=== PATIENT | female | born 1970 | race Caucasian/White ===

== ENCOUNTER 2022-02-18 17:23 | Outpatient (CLI) | payer MEDICARE, MEDICAID, SELFPAY ==
--- NOTE | 2022-02-18 17:37 | XR_ITS ---
WS: [id number] Exam: XR cervical spine 3V* [id number] Date/Time of Exam: 02/18/2022 5:37 PM Reason For Exam: M54.2 - Cervicalgia Comparison 05/20/2008. No fracture or dislocation. Disc spaces are preserved. Minimal facet DJD. Paraspinal soft tissues alli ear normal. The odontoid is intact. XR/XR cervical spine 3V* [id number] IMPRESSION: 1. No fracture or malalignment. Minimal facet DJD.
[2022-02-18 17:56] LABS: Basophils # 0.1 10^3/uL (0.0-0.1); Basophils % 0.9 %; Eosinophils # 0.3 10^3/uL (0.0-0.8); Eosinophils % 2.4 %; Hematocrit 38.8 % (37.0-47.0); Lymphocytes # 4.5 10^3/uL (0.8-4.8); Lymphocytes % 41.2 %; Mean Corpuscular HGB Conc 33.5 g/dL (30.0-36.0); Mean Corpuscular Hemoglobin 31.6 pg (28.0-34.0); Mean Corpuscular Volume 94.4 fl (81-99); Mean Platelet Volume 9.4 fL (7.4-10.4); Monocytes # 0.7 10^3/uL (0.2-0.9); Neutrophils # 5.34 10^3/uL (1.8-7.7); Neutrophils % 49.1 %; Nucleated Red Blood Cells % 0 %; Platelet Count 331 10^3/cmm (130-400); Red Blood Count 4.11 10^6/uL (4.1-5.3); Red Cell Distribution Width 12.3 % (12.1-15.1); White Blood Count 10.9 10^3/uL (4.0-10.0)
[2022-02-18 18:03] LABS: Erythrocyte Sedimentation Rate 21 mm/hr (0-15)
[2022-02-18 18:34] LABS: 25 Hydroxy Vitamin D 17 ng/mL (30-100); Alanine Aminotransferase 21 U/L (0-33); Albumin Level 4.1 g/dL (3.5-5.2); Alkaline Phosphatase 77 IU/L (35-105); Aspartate Amino Transferase 17 U/L (0-32); Blood Urea Nitrogen 10 mg/dL (6-20); C Reactive Protein 3.1 mg/L (0.0-4.9); Calcium 9.2 mg/dL (8.5-10.5); Carbon Dioxide 23 mmol/L (22-29); Chloride 104 mmol/L (98-107); Chol HDL Ratio 6.38 mg/dL (0.0-4.40); Cholesterol 236 mg/dL (0-200); Glomerular Filtration Rate 88.2 mL/min (90-130); Glucose 106 mg/dL (65-115); HDL Cholesterol 37 mg/dL (60-100); LDL Cholesterol Calculated 126 mg/dL (50-129); Osmolality Calculated 285 mOsm/kg (285-295); Sodium 138 mmol/L (136-145); Thyroid Stimulating Hormone 1.88 uIU/mL (0.27-4.20); Total Bilirubin 0.2 mg/dL (0.15-1.2); Total Protein 7.1 g/dL (6.6-8.7); Triglycerides 364 mg/dL (0-150); VLDL Cholestrol Calculation 73 mg/dL (0-30)
[2022-02-18 18:38] LABS: Vitamin B12 > 2000 pg/mL (232-1245)
== END 2022-02-18 17:24 | disposition home or self-care (01) ==
LOC: RAD 17:35
PROVIDERS: PCP Nurse Practitioner; Visit Provider Nurse Practitioner
DX: M54.2 Cervicalgia (principal); E55.9 Vitamin D deficiency, unspecified; M25.50 Pain in unspecified joint; Z13.6 Encounter for screening for cardiovascular disorders; R53.83 Other fatigue
CPT/HCPCS: 72040; 80053; 80061; 82306; 82607; 84443; 85025; 85651; 86140

== ENCOUNTER 2022-03-26 15:08 | Emergency (ER) | payer MEDICARE, MEDICAID, SELFPAY ==
[2022-03-26 15:35] VITALS: BP 112/94; PULSE 100; RESP 18; TEMP 37.6; O2SAT 100
--- NOTE | 2022-03-26 16:45 | CTR_ITS ---
PROCEDURE INFORMATION: Exam: CT Abdomen And Pelvis Without Contrast Exam date and time: 03/26/2022 5:13 PM Age: 52 years old Clinical indication: Abdominal pain; Localized; Right; Prior surgery; Surgery date: 6+ months; Surgery type: Hyst; Patient HX: C/O R sided abd pain; Additional info: Rlq pain TECHNIQUE: Imaging protocol: Computed tomography of the abdomen and pelvis without contrast. Radiation optimization: All CT scans at this facility use at least one of these dose optimization techniques: automated exposure control; mA and/or kV adjustment per patient size (includes targeted exams where dose is matched to clinical indication); or iterative reconstruction. COMPARISON: [facility] Abdomen Limited 12/02/2015 8:22 AM RADIATION DOSE METRICS: Total DLP (mGy-cm): 1673.57 FINDINGS: Tubes, catheters and devices: Pelvic clips. Liver: Normal. No mass. Gallbladder and bile ducts: Normal. No calcified stones. No ductal dilation. Pancreas: Normal. No ductal dilation. Spleen: Normal. No splenomegaly. Adrenal glands: Normal. No mass. Kidneys and ureters: Normal. No hydronephrosis. Stomach and bowel: Diverticulosis of the distal colon. No diverticulitis. 4.3 cm region of fatty inflammation and stranding with a thin capsule along the anteromedial proximal colon, at the level of the ileocecal valve. This fat inflammation appears to surround a possible diverticulum containing gas bubbles. The stomach and small bowel are unremarkable. No obstruction. Appendix: The appendix is not visualized. No secondary signs of appendicitis. Intraperitoneal space: Unremarkable. No free air. No significant fluid collection. Retroperitoneal space: Small right retroperitoneal calcifications are consistent with phleboliths. Vasculature: See Retroperitoneal space finding. Lymph nodes: Unremarkable. No enlarged lymph nodes. Urinary bladder: The urinary bladder is decompressed. Reproductive: The uterus and ovaries are absent. Bones/joints: Unremarkable. No acute fracture. Soft tissues: Unremarkable. CT/CT abdomen pelvis wo con [id number] IMPRESSION: 1. Fatty inflammation along the anteromedial proximal colon is most likely epiploic appendagitis. There is a possible diverticulum centrally which raises the possibility of acute diverticulitis.
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
[2022-03-26 16:48] LABS: Basophils # 0.1 10^3/uL (0.0-0.1); Basophils % 0.6 %; Eosinophils # 0.1 10^3/uL (0.0-0.8); Eosinophils % 0.8 %; Hematocrit 40.6 % (37.0-47.0); Hemoglobin 13.3 g/dL (11.5-15.3); Lymphocytes # 3.6 10^3/uL (0.8-4.8); Lymphocytes % 32.3 %; Mean Corpuscular HGB Conc 32.8 g/dL (30.0-36.0); Mean Corpuscular Hemoglobin 30.9 pg (28.0-34.0); Mean Corpuscular Volume 94.4 fl (81-99); Mean Platelet Volume 9.7 fL (7.4-10.4); Monocytes # 0.7 10^3/uL (0.2-0.9); Monocytes % 6.6 %; Neutrophils # 6.62 10^3/uL (1.8-7.7); Neutrophils % 59.3 %; Nucleated Red Blood Cells % 0 %; Platelet Count 330 10^3/cmm (130-400); Red Cell Distribution Width 11.9 % (12.1-15.1); White Blood Count 11.2 10^3/uL (4.0-10.0)
[2022-03-26 17:33] LABS: Alanine Aminotransferase 17 U/L (0-33); Albumin Level 4.8 g/dL (3.5-5.2); Alkaline Phosphatase 88 IU/L (35-105); Anion Gap 16.6 (5-19); Aspartate Amino Transferase 12 U/L (0-32); Blood Urea Nitrogen 6 mg/dL (6-20); Calcium 9.6 mg/dL (8.5-10.5); Carbon Dioxide 20 mmol/L (22-29); Chloride 106 mmol/L (98-107); Globulin 2.9 g/dL (1.3-4.6); Glomerular Filtration Rate 88.2 mL/min (90-130); Glucose 99 mg/dL (65-115); Osmolality Calculated 286 mOsm/kg (285-295); Potassium 3.6 mmol/L (3.5-5.1); Sodium 139 mmol/L (136-145); Total Bilirubin 0.4 mg/dL (0.15-1.2); Total Protein 7.7 g/dL (6.6-8.7)
[2022-03-26 18:28] LABS: Add Urine Microscopic? NO; Bilirubin Urine Neg (Negative); Blood Urine Neg (Negative); Glucose Urine UA Norm (Normal); Ketones Urine Negative (Negative); Leukocyte Esterase Urine Negative (Negative); Nitrate Urine Negative (Negative); Protein Urine Neg (Negative); Sulfosalicylic Acid Urine Negative (Negative); Urine Appearance Clear (CLEAR); Urine Color Yellow (Yellow); Urobilinogen Urine Norm (Negative); pH Urine 8 (5-7)
[2022-03-26 18:30] LABS: Charge for UA Resulting for Rev
[2022-03-26 18:42] VITALS: BP 106/65; PULSE 74; RESP 16; O2SAT 98
[2022-03-26] MEDS: ketorolac 30 mg/mL INJ 15 MG IVP (18:53)
== END 2022-03-26 19:00 | disposition home or self-care (01) ==
PROVIDERS: Emergency Provider Emergency Medicine; PCP Nurse Practitioner
DX: K63.89 Other specified diseases of intestine (principal); K21.9 Gastro-esophageal reflux disease without esophagitis; F17.200 Nicotine dependence, unspecified, uncomplicated
CPT/HCPCS: 74176; 80053; 81003; 85025; 96374; 99283; J1885

== ENCOUNTER 2022-08-23 09:32 | Outpatient (CLI) | payer MEDICARE, MEDICAID, SELFPAY ==
--- NOTE | 2022-08-23 09:45 | XR_ITS ---
WS: [id number] [place] [id number] REASON FOR EXAM: M25.511 - Pain in left shoulder FINDINGS: The left humerus is intact with no fracture or focal bone lesion. No periosteal reaction. No soft tissue abnormality. XR/[place] [id number] IMPRESSION: No significant abnormality of the left humerus.
--- NOTE | 2022-08-23 09:45 | XR_ITS ---
WS: [id number] [place] [id number] REASON FOR EXAM: M25.511 - Pain in right shoulder FINDINGS: No fracture or focal bone lesion of the humerus. No periosteal reaction. No soft tissue abnormality. XR/[place] [id number] IMPRESSION: No significant abnormality of the right humerus.
--- NOTE | 2022-08-23 10:20 | ECG_ITS ---
[facility] Test Date: 2022-08-23 Pat Name: Gisella Rodriguez Department: Room: Gender: Female Codifier: : 1970 Requested By: Talha Wood Order Number: [id number] Henrietta MD: Jean-Claude Del Rio M.D. Measurements Intervals [place] Rate: 78 P: 66 WV: 153 QRS: 70 QRSD: 102 T: 48 QT: 362 QTc: 415 Interpretive Statements SINUS RHYTHM Compared to ECG 03/12/2015 17:22:33 Sinus arrhythmia no longer present Electronically Signed On 08-23-2022 17:43:19 CDT by Jean-Claude Del Rio M.D. [id number] f
== END 2022-08-23 09:33 | disposition home or self-care (01) ==
LOC: RAD 09:36
PROVIDERS: PCP Nurse Practitioner; Visit Provider Nurse Practitioner
DX: M25.512 Pain in left shoulder (principal); M25.511 Pain in right shoulder; F41.1 Generalized anxiety disorder
CPT/HCPCS: 73060; 93005

== ENCOUNTER → 2022-09-13 08:37 | Outpatient (BNVA) | payer MEDICARE, MEDICAID, SELFPAY | PROVIDERS: PCP Nurse Practitioner; Visit Provider Specialist | DX: M25.512 Pain in left shoulder (principal); M25.511 Pain in right shoulder | CPT/HCPCS: 73030; 99204 ==

== ENCOUNTER → 2022-10-01 11:26 | Outpatient (BNVA) | payer MEDICARE, MEDICAID, SELFPAY | PROVIDERS: PCP Nurse Practitioner; Visit Provider Nurse Practitioner | DX: M54.2 Cervicalgia (principal); I10 Essential (primary) hypertension; M79.18 Myalgia, other site; M51.16 Intervertebral disc disorders with radiculopathy, lumbar region | CPT/HCPCS: 81000 ==

== ENCOUNTER 2022-10-02 10:54 | Emergency (ER) | payer MEDICARE, MEDICAID, SELFPAY ==
[2022-10-02 11:00] VITALS: BP 140/77; PULSE 62; RESP 11; TEMP 36.4; O2SAT 98; BMI 23.8
--- NOTE | 2022-10-02 11:14 | PC.NURSE ---
Pt reports frontal headache beginning today and rated a 8/10 and described as aching. Pt denies changes to vision.
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
[2022-10-02] MEDS: ketorolac 30 mg/mL INJ 15 MG IVP (12:37)
[2022-10-02 12:52] LABS: Anion Gap 13.9 (5-19); Blood Urea Nitrogen 8 mg/dL (6-20); Calcium 9.3 mg/dL (8.5-10.5); Carbon Dioxide 22 mmol/L (22-29); Chloride 104 mmol/L (98-107); Glomerular Filtration Rate 105.4 mL/min (90-130); Glucose 110 mg/dL (65-115); Osmolality Calculated 281 mOsm/kg (285-295); Potassium 3.9 mmol/L (3.5-5.1); Sodium 136 mmol/L (136-145)
[2022-10-02] MEDS: metoclopramide 5 mg/mL SDV 2 mL IVP (13:03)
[2022-10-02] MEDS: diphenhydrAMINE 50 mg/mL SDV 1mL 25 MG IVP (13:05)
[2022-10-02 13:10] VITALS: BP 133/86; PULSE 55; RESP 16; O2SAT 96
[2022-10-02 13:45] VITALS: BP 131/65; PULSE 58; RESP 16; O2SAT 98
== END 2022-10-02 13:57 | disposition home or self-care (01) ==
PROVIDERS: Emergency Provider Emergency Medicine; PCP Nurse Practitioner
DX: R51.9 Headache, unspecified (principal); R03.0 Elevated blood-pressure reading, without diagnosis of hypertension; F41.9 Anxiety disorder, unspecified; F17.210 Nicotine dependence, cigarettes, uncomplicated
CPT/HCPCS: 36415; 80048; 96374; 96375; 99284; J1200; J1885; J2765

== ENCOUNTER 2022-11-05 10:55 | Outpatient (CLI) | payer MEDICARE, MEDICAID, SELFPAY ==
--- NOTE | 2022-11-05 11:00 | IR_ITS ---
WS: [id number] Left shoulder arthrogram, 11/05/2022 Clinical Data: shoulder pain Comparison: Left shoulder, 09/13/2022 Fluoroscopy time: 0min [id number] # of spot films: 3 Findings: With the usual technique, a 22-gauge small spinal needle was inserted into the left shoulder joint. A fter localizing the needle tip with 1 mL of Omnipaque at a concentration of 240 mg/mL, an injection o f 12 mL of the Omnipaque was done. The shoulder joint shows a normal outline. No evidence of a rotator cuff tear could be seen. IR/IR arthrogram shoulderLT [id number] Impression: Satisfactory injection of Omnipaque into the left shoulder joint for preparatio n for post arthrogram CT.
[2022-11-05] MEDS: iohexol 240 mg/mL 50 mL Btl INTRA-ARTI (11:51)
--- NOTE | 2022-11-05 12:30 | CT_ITS ---
WS: [id number] CT LEFT SHOULDER ARTHROGRAM TECHNIQUE: CT LEFT shoulder arthrogram with coronal and sagittal reformatted images. CLINICAL INFORMATION: shoulder pain COMPARISON: None. DLP: [address] scans at [facility] use at least one of these dose optimization techniques: automated e xposure control; mA and/or kV adjustment per patient size (includes targeted exams where dose is matc hed to clinical indication); or iterative reconstruction. FINDINGS: Mild degenerative arthritis AC joint. Subacromial space is well preserved. Mild narrowing of the suba cromial space with chronic thinning of the distal supraspinatus. Slight impingement on the distal sup raspinatus which appears intact. Infraspinatus appears intact. Normal teres minor. Distal subscapularis appears intact. Biceps tendon appears intact within the bicipital groove. Intra- articular biceps tendon is intact. Glenoid labrum appears grossly normal.Partially visualized LEFT malgorzata ng is well aerated. CT/CT Shoulder LT ww con [id number] IMPRESSION: 1. Mild degenerative arthritis AC joint with mild narrowing of the subacromial space. Slight impingement on the distal supraspinatus. 2. Mild chronic thinning of the distal supraspinatus appears intact. Rotator c uff appears intact. 3. Normal biceps tendon bicipital groove. 4. Intra-articular biceps tendon appears intact. 5. Glenoid labrum appears grossly normal. Normal middle glenohumeral ligament.
== END 2022-11-05 10:56 | disposition home or self-care (01) ==
LOC: RAD 10:56
PROVIDERS: PCP Nurse Practitioner; Visit Provider Specialist
DX: M25.512 Pain in left shoulder (principal)
CPT/HCPCS: 23350; 73040; 73202; 77002; Q9966

== ENCOUNTER → 2022-11-17 08:12 | Outpatient (BNVA) | payer MEDICARE, MEDICAID, SELFPAY | PROVIDERS: PCP Nurse Practitioner; Visit Provider Specialist | DX: M75.02 Adhesive capsulitis of left shoulder (principal); M19.012 Primary osteoarthritis, left shoulder; M77.8 Other enthesopathies, not elsewhere classified | CPT/HCPCS: 99213 ==

== ENCOUNTER → 2022-12-13 11:31 | Outpatient (BNVA) | payer MEDICARE, MEDICAID, SELFPAY | PROVIDERS: PCP Nurse Practitioner; Visit Provider Nurse Practitioner | DX: J31.0 Chronic rhinitis (principal); E55.9 Vitamin D deficiency, unspecified; M51.16 Intervertebral disc disorders with radiculopathy, lumbar region; K21.9 Gastro-esophageal reflux disease without esophagitis; N39.3 Stress incontinence (female) (male); F41.1 Generalized anxiety disorder; R03.0 Elevated blood-pressure reading, without diagnosis of hypertension; M79.18 Myalgia, other site; M75.50 Bursitis of unspecified shoulder; M75.90 Shoulder lesion, unspecified, unspecified shoulder | CPT/HCPCS: 80053; 82306; 84550; 85025; 85651; 86140 ==

== ENCOUNTER → 2023-08-31 12:14 | Outpatient (BNVA) | payer MEDICARE, MEDICAID, SELFPAY | PROVIDERS: PCP Nurse Practitioner; Visit Provider Nurse Practitioner | DX: F41.1 Generalized anxiety disorder (principal); R03.0 Elevated blood-pressure reading, without diagnosis of hypertension; M75.50 Bursitis of unspecified shoulder; M75.90 Shoulder lesion, unspecified, unspecified shoulder; J31.0 Chronic rhinitis; E55.9 Vitamin D deficiency, unspecified; M51.16 Intervertebral disc disorders with radiculopathy, lumbar region; K21.9 Gastro-esophageal reflux disease without esophagitis; N39.3 Stress incontinence (female) (male); M79.18 Myalgia, other site; Z13.6 Encounter for screening for cardiovascular disorders | CPT/HCPCS: 80053; 80061; 82306; 84443 ==

== ENCOUNTER → 2023-12-08 11:04 | Outpatient (BNVA) | payer MEDICARE, MEDICAID, SELFPAY | PROVIDERS: PCP Nurse Practitioner; Visit Provider Nurse Practitioner | DX: F41.1 Generalized anxiety disorder (principal); M75.50 Bursitis of unspecified shoulder; M75.90 Shoulder lesion, unspecified, unspecified shoulder; J31.0 Chronic rhinitis; E55.9 Vitamin D deficiency, unspecified; M51.16 Intervertebral disc disorders with radiculopathy, lumbar region; K21.9 Gastro-esophageal reflux disease without esophagitis; N39.3 Stress incontinence (female) (male); R03.0 Elevated blood-pressure reading, without diagnosis of hypertension; M79.18 Myalgia, other site; F17.200 Nicotine dependence, unspecified, uncomplicated | CPT/HCPCS: 71046; 80053; 82306; 82607; 83735; 84443; 85025 ==

== ENCOUNTER → 2024-05-22 16:21 | Outpatient (BNVA) | payer MEDICARE, MEDICAID, SELFPAY | PROVIDERS: PCP Nurse Practitioner; Visit Provider Nurse Practitioner | DX: J98.01 Acute bronchospasm (principal); F41.1 Generalized anxiety disorder; M75.50 Bursitis of unspecified shoulder; M75.90 Shoulder lesion, unspecified, unspecified shoulder; J31.0 Chronic rhinitis; M51.16 Intervertebral disc disorders with radiculopathy, lumbar region; K21.9 Gastro-esophageal reflux disease without esophagitis; N32.81 Overactive bladder; R03.0 Elevated blood-pressure reading, without diagnosis of hypertension; M79.18 Myalgia, other site; E55.9 Vitamin D deficiency, unspecified; Z13.6 Encounter for screening for cardiovascular disorders | CPT/HCPCS: 80053; 80061; 82306; 84443 ==

== ENCOUNTER → 2025-01-16 11:46 | Outpatient (BNVA) | payer MEDICARE, MEDICAID, SELFPAY | PROVIDERS: PCP Nurse Practitioner; Visit Provider Nurse Practitioner | DX: E78.2 Mixed hyperlipidemia (principal); E55.9 Vitamin D deficiency, unspecified | CPT/HCPCS: 80053; 80061; 82306; 84443 ==

== ENCOUNTER → 2025-06-25 12:04 | Outpatient (BNVA) | payer MEDICARE, MEDICAID, SELFPAY | PROVIDERS: PCP Nurse Practitioner; Visit Provider Nurse Practitioner | DX: E78.2 Mixed hyperlipidemia (principal); E55.9 Vitamin D deficiency, unspecified | CPT/HCPCS: 80053; 82306; 84443; 85025 ==

== ENCOUNTER → 2025-09-25 15:23 | Outpatient (BNVA) | payer MEDICARE, MEDICAID, SELFPAY | PROVIDERS: PCP Nurse Practitioner; Visit Provider Nurse Practitioner | DX: E78.2 Mixed hyperlipidemia (principal); F41.1 Generalized anxiety disorder | CPT/HCPCS: 80053; 80061; 81000; 82607; 83735; 84443; 85025 ==

== ENCOUNTER 2025-10-16 20:43 | Emergency (ER) | payer MEDICARE, MEDICAID, SELFPAY ==
[2025-10-16 20:46] VITALS: BP 132/89; PULSE 90; TEMP 36.7; O2SAT 100
--- NOTE | 2025-10-16 20:47 | XRR_ITS ---
PROCEDURE INFORMATION: Exam: XR Chest Exam date and time: 10/16/2025 9:03 PM Age: 55 years old Clinical indication: Pain; Angina pectoris; Additional info: Chest pain TECHNIQUE: Imaging protocol: Radiologic exam of the chest. Views: 1 view. COMPARISON: CR XR chest 2V* [id number] 12/08/2023 11:02 AM FINDINGS: Lungs: Left lower lobe atelectasis. Pleural spaces: Unremarkable. No pleural effusion. No pneumothorax. Heart/Mediastinum: Unremarkable. No cardiomegaly. Bones/joints: Unremarkable. XR/XR chest 1V portable [id number] IMPRESSION: Left lower lobe atelectasis.
--- NOTE | 2025-10-16 20:47 | ECG_ITS ---
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 Measurements Intervals [place] Rate: 88 P: 74 KS: 158 QRS: 79 QRSD: 94 T: 56 QT: 353 QTc: 428 Interpretive Statements SINUS RHYTHM Compared to ECG 08/23/2022 10:12:40 No significant changes Electronically Signed On 10-17-2025 17:24:55 JUDGE'S CLERK by Brandon Graff M.D. [email or web address]
--- OUTSIDE RECORDS SUMMARY | 2025-10-16 20:51 | XMS_ITS | Encounter Summary ---
Author Organization [employer] [facility] Address [address] [place] [address] Care Team Providers Care Axle And Frame Mechanic Name Role Phone Amber Ward MD, Woo Sanford Primary Care Provider Encounter Details Date Type Department Care Team (Latest Contact Info) Description 10/07/1998 Outpatient Historical [facility] Tachycardia, unspecified (Primary Dx); Dyspepsia and other specified disorders of function of stomach Social History Tobacco Use Types Packs/Day Years Used Date Smoking Tobacco: Never Assessed Comments Unknown Sex and Gender Information Value Date Recorded Sex Assigned at Not on file 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
--- OUTSIDE RECORDS SUMMARY | 2025-10-16 20:51 | XMS_ITS | Encounter Summary ---
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
--- OUTSIDE RECORDS SUMMARY | 2025-10-16 20:51 | XMS_ITS | Encounter Summary ---
Author Organization 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
--- OUTSIDE RECORDS SUMMARY | 2025-10-16 20:51 | XMS_ITS | Encounter Summary ---
Author Organization [employer] [facility] Address [address] [place] [address] Care Team Providers Care Public Message Service Supervisor Name Role Phone Amber Ward MD, Woo Sanford Primary Care Provider Encounter Details Date Type Department Care Team (Latest Contact Info) Description 11/03/1998 Outpatient Historical [facility] Dysmenorrhea (Primary Dx); Dyspepsia and other specified disorders of function of stomach; Anxiety state, unspecified Social History Tobacco Use Types Packs/Day Years Used Date Smoking Tobacco: Never Assessed Comments Unknown Sex and Gender Information Value Date Recorded Sex Assigned at Not on file 

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
--- OUTSIDE RECORDS SUMMARY | 2025-10-16 20:51 | XMS_ITS | Encounter Summary ---
Author Organization [employer] [facility] Address [address] [place] [address] Care Team Providers Care Refrigeration Person Name Role Phone Amber Ward MD, Woo Sanford Primary Care Provider Encounter Details Date Type Department Care Team (Latest Contact Info) Description 02/02/1999 Outpatient Historical [facility] Abdominal pain, unspecified site (Primary Dx); Leiomyoma of uterus, unspecified; Dyspareunia Social History Tobacco Use Types Packs/Day Years Used Date Smoking Tobacco: Never Assessed Comments Unknown Sex and Gender Information Value Date Recorded Sex Assigned at Not on file 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
--- OUTSIDE RECORDS SUMMARY | 2025-10-16 20:51 | XMS_ITS | Encounter Summary ---
Author Organization [facility] Address [address] [place] [address] Care Team Providers Care Personal Care Assistant Name Role Phone Amber Ward MD, Woo Sanford Primary Care Provider Encounter Details Date Type Department Care Team (Late st Contact Info) Description 08/26/2004 Outpatient Historical [facility] [address] [phone] Heriberto Rivera MD NO ADDRESS ON FILE Gallo Mera MD NO ADDRESS ON FILE LUMBAGO (Primary Dx) Social History Tobacco Use Types Packs/Day Years Used Date Smoking Tobacco: Never Assessed Comments Unknown Sex and Gender Information Value Date Recorded Sex Assigned at Not on file Legal Sex Female 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
--- OUTSIDE RECORDS SUMMARY | 2025-10-16 20:51 | XMS_ITS | Encounter Summary ---
Author Organization [facility] Address [address] [facility] [address] 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
--- OUTSIDE RECORDS SUMMARY | 2025-10-16 20:51 | XMS_ITS | Encounter Summary ---
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
--- OUTSIDE RECORDS SUMMARY | 2025-10-16 20:51 | XMS_ITS | Encounter Summary ---
Author Organization [employer] [facility] Address [address] [place] [address] Care Team Providers Care Italian Tutor Name Role Phone Amber Ward MD, Woo Sanford Primary Care Provider Encounter Details Date Type Department Care Team (Latest Contact Info) Description 10/10/1998 Outpatient Historical [facility] Anxiety state, unspecified (Primary Dx) Social History Tobacco Use Types Packs/Day Years Used Date Smoking Tobacco: Never Assessed Comments Unknown Sex and Gender Information Value Date Recorded Sex Assigned at Not on file Legal Sex Female 5:19 AM SINK CUTTER Gender Identity Not on file Sexual Orientation Not on file documented as of this encounter Plan of Treatment Not on file documented as of this encounter Visit Diagnoses Diagnosis Anxiety state, unspecified- Primary documented in this encounter Care Teams Italian Tutor Relationship Specialty Start Date End Date Woo Clark Jr., MD [address] [address] PCP - General 12/30/09 documented as of this encounter
--- OUTSIDE RECORDS SUMMARY | 2025-10-16 20:51 | XMS_ITS | Encounter Summary ---
Author Organization [employer] [facility] Address [address] [place] [address] Care Team Providers Care Ehs Manager Name Role Phone Amber Ward MD, Woo Sanford Primary Care Provider Encounter Details Date Type Department Care Team (Latest Contact Info) Description 02/02/2001 Outpatient Historical [facility] Backache, unspecified (Primary Dx) Social History Tobacco Use Types Packs/Day Years Used Date Smoking Tobacco: Never Assessed Comments Unknown Sex and Gender Information Value Date Recorded Sex Assigned at Not on file Legal Sex Female 5:19 AM FUNCTIONAL TESTER Gender Identity Not on file Sexual Orientation Not on file documented as of this encounter Plan of Treatment Not on file documented as of this encounter Visit Diagnoses Diagnosis Backache, unspecified- Primary documented in this encounter Care Teams Ehs Manager Relationship Specialty Start Date End Date Woo Clark Jr., MD [address] [address] PCP - General 12/30/09 documented as of this encounter
--- OUTSIDE RECORDS SUMMARY | 2025-10-16 20:51 | XMS_ITS | Encounter Summary ---
Author Organization [facility] Address [address] [place] [address] Care Team Providers Care Printer Slotter Helper Name Role Phone Amber Ward MD, Woo Sanford Primary Care Provider Encounter Details Date Type Department Care Team (Latest Contact Info) Description 09/04/2002 Outpatient Historical [facility] B-COMPLEX DEFIC NEC (Primary Dx); LUMBAGO; General symptoms NEC Social History Tobacco Use Types Packs/Day Years Used Date Smoking Tobacco: Never Assessed Comments Unknown Sex and Gender Information Value Date Recorded Sex Assigned at Not on file Legal Sex Female 5:19 AM BULK FILLER Gender Identity Not on file Sexual Orientation Not on file documented as of this encounter Plan of Treatment Not on file documented as of this encounter Visit Diagnoses Diagnosis Other B-complex deficiencies- Primary Lumbago General symptoms NEC Other general symptoms documented in this encounter Care Teams Printer Slotter Helper Relationship Specialty Start Date End Date Woo Clark Jr., MD [address] [address] PCP - General 12/30/09 documented as of this encounter
--- OUTSIDE RECORDS SUMMARY | 2025-10-16 20:51 | XMS_ITS | Encounter Summary ---
Author Organization [employer] [facility] Address [address] [place] [address] Care Team Providers Care Building Energy Consultant Name Role Phone Amber Ward MD, Woo Sanford Primary Care Provider Encounter Details Date Type Department Care Team (Latest Contact Info) Description 01/24/2001 Outpatient Historical [facility] Backache, unspecified (Primary Dx); Pain in joint, pelvic region and thigh; Pain in joint, shoulder region; Pain in joint, lower leg Social History Tobacco Use Types Packs/Day Years Used Date Smoking Tobacco: Never Assessed Comments Unknown Sex and Gender Information Value Date Recorded Sex Assigned at Not on file Legal Sex Female 5:19 AM STATIONARY ENGINEER 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
--- OUTSIDE RECORDS SUMMARY | 2025-10-16 20:51 | XMS_ITS | Encounter Summary ---
Author Organization [employer] [facility] Address [address] [place] [address] Care Team Providers Care Sales Representative Adding Machines Name Role Phone Amber Ward MD, Woo Sanford Primary Care Provider Encounter Details Date Type Department Care Team (Latest Contact Info) Description 07/24/1999 Outpatient Historical [facility] Allergic rhinitis, cause unspecified (Primary Dx); Unspecified asthma(493.90); Unspecified sinusitis (chronic) Social History Tobacco Use Types Packs/Day Years Used Date Smoking Tobacco: Never Assessed Comments Unknown Sex and Gender Information Value Date Recorded Sex Assigned at Not on file Legal Sex Female 5:19 AM STAFF SONOGRAPHER Gender Identity Not on file Sexual Orientation Not on file documented as of this encounter Plan of Treatment Not on file documented as of this encounter Visit Diagnoses Diagnosis Allergic rhinitis, cause unspecified- Primary Unspecified asthma(493.90) Unspecified asthma Unspecified sinusitis (chronic) documented in this encounter Care Teams Sales Representative Adding Machines Relationship Specialty Start Date End Date Woo Clark Jr., MD [address] [address] PCP - General 12/30/09 documented as of this encounter
--- OUTSIDE RECORDS SUMMARY | 2025-10-16 20:51 | XMS_ITS | Clinical Summary ---
Author Organization [facility] Address [address] [place] [address] Phone Care Team Providers Care Marketing Officer Name Role Phone Amber Ward MD, Woo Sanford Primary Care Provider Allergies No known active allergies Medications desvenlafaxine SR 24 hour (PRISTIQ) 50 mg Oral Tb24 Take 50 mg by mouth daily with breakfast. Active oxybutynin chloride SR 24 hour (DITROPAN XL) 10 mg Oral TO24 Take 10 mg by mouth daily. Active clonazePAM (KLONOPIN) 1 mg Oral tablet Take 1 mg by mouth 2 times daily. Active zolpidem (AMBIEN) 10 mg Oral tablet Take 10 mg by mouth nightly as needed for Insomnia. Active predniSONE (DELTASONE) 10 mg Oral tablet Take by mouth daily. Take 40 mg daily for 3 days, then Take 30 mg daily for 3 days, then Take 20 mg daily for 3 days, then Take 10 mg daily for 3 days until pills are gone. 30 Tab 0 12/30/2009 Active tramadol (ULTRAM) 50 mg Oral tablet Take 1 Tab by mouth every 6 hours as needed for Pain. 20 Tab 0 12/30/2009 Active Social History Tobacco Use Types Packs/Day Years Used Date Smoking Tobacco: Every Day Cigarettes Alcohol Use Standard Drinks/Week Comments No 0 (1 standard drink = 0.6 oz pur e alcohol) Comments Unknown Sex and Gender Information Value Date Recorded Sex Assigned at Not on file Legal Sex Female 5:19 AM ONLINE ADVERTISING DIRECTOR Gender Identity Not on file Sexual Orientation Not on file Last Filed Vital Signs Vital Sign Reading Time Taken Comments Blood Pressure 108/72 12/30/2009 9:58 AM ONLINE ADVERTISING DIRECTOR Pulse 78 12/30/2009 9:58 AM ONLINE ADVERTISING DIRECTOR Temperature 36.8 C (98.2 F) 12/30/2009 9:08 AM ONLINE ADVERTISING DIRECTOR Respiratory Rate 16 12/30/2009 9:58 AM ONLINE ADVERTISING DIRECTOR Oxygen Saturation 97% 12/30/2009 9:58 AM ONLINE ADVERTISING DIRECTOR Inhaled Oxygen Concentration - - Weight 70.3 kg (155 lb) 12/30/2009 9:08 AM ONLINE ADVERTISING DIRECTOR Height 170.2 cm (5' 7 ) 12/30/2009 9:08 AM ONLINE ADVERTISING DIRECTOR Body Mass Index 24.28 12/30/2009 9:08 AM ONLINE ADVERTISING DIRECTOR Plan of Treatment Health Maintenance Due Date Last Done Comments DTAP/TDAP/TD VACCINES (1 - Tdap) 1990 HEPATITIS B VACCINES (1 of 3 - 19+ 3-dose series) 01/19 HPV/Cotest (21-29) 02/01/1992 CERVICAL CANCER SCREENING 2001 HPV/Cotest (30-65) 2001 PAP SMEAR 2001 BREAST CANCER SCREENING 2011 COLORECTAL SCREENING 02/01/2016 Colorectal Cancer Screening 02/01/2016 FIT-DNA Q 3 years 02/01/2016 FIT/FOBT Q 1 year 02/01/2016 Flex Sig/CT Colonography Q 5 years 02/01/2016 ZOSTER VACCINE (1 of 2) 2021 INFLUENZA VACCINE (#1) 2025 Insurance MEDICARE PART A AND B [place] Care Teams Marketing Officer Relationship Specialty Start Date End Date Amber Ward, Woo Sanford MD [address] [address] PCP - General 12/30/09
--- OUTSIDE RECORDS SUMMARY | 2025-10-16 20:51 | XMS_ITS | Encounter Summary ---
Author Organization [facility] Address [address] [place] [address] Care Team Providers Care Social Security Specialist Name Role Phone Amber Ward MD, Woo Sanford Primary Care Provider Encounter Details Date Type Department Care Team (Latest Contact Info) Description 05/10/2002 Outpatient Historical [facility] General symptoms NEC (Primary Dx); SCIATICA Social History Tobacco Use Types Packs/Day Years Used Date Smoking Tobacco: Never Assessed Comments Unknown Sex and Gender Information Value Date Recorded Sex Assigned at Not on file Legal Sex Female 5:19 AM JIG 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
--- OUTSIDE RECORDS SUMMARY | 2025-10-16 20:51 | XMS_ITS | Encounter Summary ---
Author Organization [employer] [facility] Address [address] [place] [address] Care Team Providers Care Torch Solderer Name Role Phone Amber Ward MD, Woo Sanford Primary Care Provider Encounter Details Date Type Department Care Team (Latest Contact Info) Description 12/10/2002 Outpatient Historical [facility] Lon Burdick MD [address] [place] [address] B-COMPLEX DEFIC NEC (Primary Dx) Social History Tobacco Use Types Packs/Day Years Used Date Smoking Tobacco: Never Assessed Comments Unknown Sex and Gender Information Value Date Recorded Sex Assigned at Not on file Legal Sex Female 5:19 AM ADVERTISING SALES ASSISTANT Gender Identity Not on file Sexual Orientation Not on file documented as of this encounter Plan of Treatment Not on file documented as of this encounter Visit Diagnoses Diagnosis Other B-complex deficiencies- Primary documented in this encounter Care Teams Torch Solderer Relationship Specialty Start Date End Date Woo Clark Jr., MD [address] [address] PCP - General 12/30/09 documented as of this encounter
--- OUTSIDE RECORDS SUMMARY | 2025-10-16 20:51 | XMS_ITS | Encounter Summary ---
Author Organization [facility] Address [address] [place] [address] Care Team Providers Care Manager Transit Name Role Phone Amber Ward MD, Woo Sanford Primary Care Provider Encounter Details Date Type Department Care Team (Late st Contact Info) Description 08/05/2003 Emergency [facility] [address] [place] [address] Aleks Rangel MD NO ADDRESS ON FILE DEPRESSIVE DISORDER NEC (Primary Dx) Social History Tobacco Use Types Packs/Day Years Used Date Smoking Tobacco: Never Assessed Comments Unknown Sex and Gender Information Value Date Recorded Sex Assigned at Not on file Legal Sex Female 5:19 AM LAB ASSOCIATE Gender Identity Not on file Sexual Orientation Not on file documented as of this encounter Plan of Treatment Not on file documented as of this encounter Visit Diagnoses Diagnosis Depressive disorder, not elsewhere classified- Primary documented in this encounter Care Teams Manager Transit Relationship Specialty Start Date End Date Woo Clark Jr., MD [address] [address] PCP - General 12/30/09 documented as of this encounter
--- OUTSIDE RECORDS SUMMARY | 2025-10-16 20:51 | XMS_ITS | Encounter Summary ---
Author Organization [facility] Address [address] [place] [address] Care Team Providers Care Life Underwriter Name Role Phone Amber Ward MD, Woo Sanford Primary Care Provider Encounter Details Date Type Department Care Team (Late st Contact Info) Description 11/19/2002 Emergency [facility] [address] [place] [address] Kory Nicole, DO [address] [place] [address] CONTUSION FACE/SCALP/NCK (Primary Dx) Social History Tobacco Use Types Packs/Day Years Used Date Smoking Tobacco: Never Assessed Comments Unknown Sex and Gender Information Value Date Recorded Sex Assigned at Not on file Legal Sex Female 5:19 AM GLOBAL SECURITY ARCHITECT Gender Identity Not on file Sexual Orientation Not on file documented as of this encounter Plan of Treatment Not on file documented as of this encounter Visit Diagnoses Diagnosis Contusion of face, scalp, and neck except eye(s)- Primary documented in this encounter Care Teams Life Underwriter Relationship Specialty Start Date End Date Woo Clark Jr., MD [address] [address] PCP - General 12/30/09 documented as of this encounter
--- OUTSIDE RECORDS SUMMARY | 2025-10-16 20:51 | XMS_ITS | Encounter Summary ---
Author Organization [facility] Address [address] Attn: [place] [address] Care Team Providers Care Hygiene Teacher Name Role Phone Amber Ward MD, Woo Sanford Primary Care Provider Encounter Details Date Type Department Care Team (Late Contact Info) Description 11/10/2000 Outpatient Historical Scout Rodriguez MD NO ADDRESS ON FILE Social History Tobacco Use Types Packs/Day Years Used Date Smoking Tobacco: Never Assessed Comments Unknown Sex and Gender Information Value Date Recorded Sex Assigned at Not on file Legal Sex Female 5:19 AM HORTICULTURAL THERAPIST Gender Identity Not on file Sexual Orientation Not on file documented as of this encounter Plan of Treatment Not on file documented as of this encounter Visit Diagnoses Not on filedocumented in this encounter Care Teams Hygiene Teacher Relationship Specialty Start Date End Date Woo Clark Jr., MD [address] [address] PCP - General 12/30/09 documented as of this encounter
--- OUTSIDE RECORDS SUMMARY | 2025-10-16 20:51 | XMS_ITS | Encounter Summary ---
Author Organization [employer] [facility] Address [address] [place] [address] Care Team Providers Care Dispute Specialist Name Role Phone Amber Ward MD, Woo Sanford Primary Care Provider Encounter Details Date Type Department Care Team (Latest Contact Info) Description 11/30/2001 Outpatient Historical [facility] SCIATICA (Primary Dx); HEAD INJURY UNSPECIFIED; DEPRESSIVE DISORDER NEC Social History Tobacco Use Types Packs/Day Years Used Date Smoking Tobacco: Never Assessed Comments Unknown Sex and Gender Information Value Date Recorded Sex Assigned at Not on file Legal Sex Female 5:19 AM FAMILY REUNIFICATION SPECIALIST Gender Identity Not on file Sexual Orientation Not on file documented as of this encounter Plan of Treatment Not on file documented as of this encounter Visit Diagnoses Diagnosis Sciatica- Primary Head injury, unspecified Depressive disorder, not elsewhere classified documented in this encounter Care Teams Dispute Specialist Relationship Specialty Start Date End Date Woo Clark Jr., MD [address] [address] PCP - General 12/30/09 documented as of this encounter
--- OUTSIDE RECORDS SUMMARY | 2025-10-16 20:51 | XMS_ITS | Encounter Summary ---
Author Organization [employer] [facility] Address [address] [place] [address] Care Team Providers Care Landscape Architect And Planner Name Role Phone Amber Ward MD, Woo Sanford Primary Care Provider Encounter Details Date Type Department Care Team (Latest Contact Info) Description 12/28/2000 Outpatient Historical [facility] Sprain of neck (Primary Dx); Sprain thoracic region; Pain in joint, pelvic region and thigh; Pain in joint, lower leg Social History Tobacco Use Types Packs/Day Years Used Date Smoking Tobacco: Never Assessed Comments Unknown Sex and Gender Information Value Date Recorded Sex Assigned at Not on file Legal Sex Female 5:19 AM FISHING HAND Gender Identity Not on file Sexual Orientation Not on file documented as of this encounter Plan of Treatment Not on file documented as of this encounter Visit Diagnoses Diagnosis Sprain of neck- Primary Neck sprain and strain Sprain thoracic region Sprain of thoracic region Pain in joint, pelvic region and thigh Pain in joint, lower leg documented in this encounter Care Teams Landscape Architect And Planner Relationship Specialty Start Date End Date Woo Clark Jr., MD [address] [address] PCP - General 12/30/09 documented as of this encounter
--- OUTSIDE RECORDS SUMMARY | 2025-10-16 20:51 | XMS_ITS | Encounter Summary ---
Author Organization [employer] [facility] Address [address] [place] [address] Care Team Providers Care Electrical Accessories Ii Assembler Name Role Phone Amber Ward MD, Woo Sanford Primary Care Provider Encounter Details Date Type Department Care Team (Latest Contact Info) Description 12/10/2002 Outpatient Historical [facility] B-COMPLEX DEFIC NEC (Primary Dx); INJURY OF FACE AND NECK Social History Tobacco Use Types Packs/Day Years Used Date Smoking Tobacco: Never Assessed Comments Unknown Sex and Gender Information Value Date Recorded Sex Assigned at Not on file Legal Sex Female 5:19 AM CIVIL DIVISION DEPUTY SHERIFF Gender Identity Not on file Sexual Orientation Not on file documented as of this encounter Plan of Treatment Not on file documented as of this encounter Visit Diagnoses Diagnosis Other B-complex deficiencies- Primary Injury of face and neck documented in this encounter Care Teams Electrical Accessories Ii Assembler Relationship Specialty Start Date End Date Woo Clark Jr., MD [address] [address] PCP - General 12/30/09 documented as of this encounter
--- OUTSIDE RECORDS SUMMARY | 2025-10-16 20:51 | XMS_ITS | Encounter Summary ---
Author Organization [facility] Address [address] [place] [address] Care Team Providers Care Services Mgr Name Role Phone Amber Ward MD, Woo Sanford Primary Care Provider Encounter Details Date Type Department Care Team (Latest Contact Info) Description 07/20/2001 Outpatient Historical [facility] [place] [address] [place] [address] Pain in joint, pelvic region and thigh (Primary Dx) Social History Tobacco Use Types Packs/Day Years Used Date Smoking Tobacco: Never Assessed Comments Unknown Sex and Gender Information Value Date Recorded Sex Assigned at Not on file Legal Sex Female 5:19 AM EMR SPECIALIST Gender Identity Not on file Sexual Orientation Not on file documented as of this encounter Plan of Treatment Not on file documented as of this encounter Visit Diagnoses Diagnosis Pain in joint, pelvic region and thigh- Primary documented in this encounter Care Teams Services Mgr Relationship Specialty Start Date End Date Woo Clark Jr., MD [address] [address] PCP - General 12/30/09 documented as of this encounter
--- OUTSIDE RECORDS SUMMARY | 2025-10-16 20:51 | XMS_ITS | Encounter Summary ---
Author Organization [email or web address] [facility] Address [address] [place] [address] Care Team Providers Care Hydro Plant Technician Name Role Phone Amber Ward MD, Woo Sanford Primary Care Provider Encounter Details Date Type Department Care Team (Latest Contact Info) Description 10/03/1998 Outpatient Historical [facility] Anxiety state, unspecified (Primary Dx); Other diseases of trachea and bronchus, not elsewhere classified; Panic disorder without agoraphobia Social History Tobacco Use Types Packs/Day Years Used Date Smoking Tobacco: Never Assessed Comments Unknown Sex and Gender Information Value Date Recorded Sex Assigned at Not on file Legal Sex Female 5:19 AM FRENCH WEAVER Gender Identity Not on file Sexual Orientation Not on file documented as of this encounter Plan of Treatment Not on file documented as of this encounter Visit Diagnoses Diagnosis Anxiety state, unspecified- Primary Other diseases of trachea and bronchus, not elsewhere classified Panic disorder without agoraphobia documented in this encounter Care Teams Hydro Plant Technician Relationship Specialty Start Date End Date Woo Clark Jr., MD [address] [address] PCP - General 12/30/09 documented as of this encounter
--- OUTSIDE RECORDS SUMMARY | 2025-10-16 20:51 | XMS_ITS | Encounter Summary ---
Author Organization [employer] [facility] Address [address] [place] [address] Care Team Providers Care Advanced Solutions Architect Name Role Phone Amber Ward MD, Woo Sanford Primary Care Provider Encounter Details Date Type Department Care Team (Latest Contact Info) Description 07/14/2001 Outpatient Historical [facility] Sprain and strain of other specified sites of hip and thigh (Primary Dx); Pain in joint, pelvic region and thigh Social History Tobacco Use Types Packs/Day Years Used Date Smoking Tobacco: Never Assessed Comments Unknown Sex and Gender Information Value Date Recorded Sex Assigned at Not on file Legal Sex Female 5:19 AM ALLIGATOR TRAPPER Gender Identity Not on file Sexual Orientation Not on file documented as of this encounter Plan of Treatment Not on file documented as of this encounter Visit Diagnoses Diagnosis Sprain and strain of other specified sites of hip and thigh- Primary Pain in joint, pelvic region and thigh documented in this encounter Care Teams Advanced Solutions Architect Relationship Specialty Start Date End Date Woo Clark Jr., MD [address] [address] PCP - General 12/30/09 documented as of this encounter
--- OUTSIDE RECORDS SUMMARY | 2025-10-16 20:51 | XMS_ITS | Encounter Summary ---
Author Organization [employer] [facility] Address [address] [place] [address] Care Team Providers Care Hse Advisor Name Role Phone Amber Ward MD, Woo Sanford Primary Care Provider Encounter Details Date Type Department Care Team (Latest Contact Info) Description 10/04/2002 Outpatient Historical [facility] Lon Burdick MD [address] [place] [id number] [facility] USE MEDICATN (Primary Dx) Social History Tobacco Use Types Packs/Day Years Used Date Smoking Tobacco: Never Assessed Comments Unknown Sex and Gender Information Value Date Recorded Sex Assigned at Not on file Legal Sex Female 5:19 AM HEEL SEAT POUNDER Gender Identity Not on file Sexual Orientation Not on file documented as of this encounter Plan of Treatment Not on file documented as of this encounter Visit Diagnoses Diagnosis Encounter for long-term (current) use of other medications- Primary documented in this encounter Care Teams Hse Advisor Relationship Specialty Start Date End Date Woo Clark Jr., MD [address] [address] PCP - General 12/30/09 documented as of this encounter
--- OUTSIDE RECORDS SUMMARY | 2025-10-16 20:51 | XMS_ITS | Encounter Summary ---
Author Organization [facility] Address [address] [place] [address] Care Team Providers Care Typing Pool Supervisor Name Role Phone Amber Ward MD, Woo Sanford Primary Care Provider Encounter Details Date Type Department Care Team (Late st Contact Info) Description 10/06/2004 Outpatient Historical [facility] [address] [place] [address] Gallo Mera MD NO ADDRESS ON FILE LUMBAGO (Primary Dx) Social History Tobacco Use Types Packs/Day Years Used Date Smoking Tobacco: Never Assessed Comments Unknown Sex and Gender Information Value Date Recorded Sex Assigned at Not on file Legal Sex Female 5:19 AM HOE WORKER Gender Identity Not on file Sexual Orientation Not on file documented as of this encounter Plan of Treatment Not on file documented as of this encounter Visit Diagnoses Diagnosis Lumbago- Primary documented in this encounter Care Teams Typing Pool Supervisor Relationship Specialty Start Date End Date Woo Clark Jr., MD [address] [phone] PCP - General 12/30/09 documented as of this encounter
--- OUTSIDE RECORDS SUMMARY | 2025-10-16 20:51 | XMS_ITS | Encounter Summary ---
Author Organization [facility] Address [address] [place] [address] Care Team Providers Care Insulation Foreman Name Role Phone Amber Ward MD, Woo Sanford Primary Care Provider Encounter Details Date Type Department Care Team (Latest Contact Info) Description 08/26/2004 Outpatient Historical [facility] [address] [place] [address] LUMBAGO (Primary Dx) Social History Tobacco Use Types Packs/Day Years Used Date Smoking Tobacco: Never Assessed Comments Unknown Sex and Gender Information Value Date Recorded Sex Assigned at Not on file Legal Sex Female 5:19 AM COPPER ETCHER Gender Identity Not on file Sexual Orientation Not on file documented as of this encounter Plan of Treatment Not on file documented as of this encounter Visit Diagnoses Diagnosis Lumbago- Primary documented in this encounter Care Teams Insulation Foreman Relationship Specialty Start Date End Date Woo Clark Jr., MD [address] [phone] PCP - General 12/30/09 documented as of this encounter
--- OUTSIDE RECORDS SUMMARY | 2025-10-16 20:51 | XMS_ITS | Encounter Summary ---
Author Organization [employer] [facility] Address [address] [place] [address] Care Team Providers Care Rate Setter Name Role Phone Amber Ward MD, Woo Sanford Primary Care Provider Encounter Details Date Type Department Care Team (Latest Contact Info) Description 07/16/1999 Outpatient Historical [facility] Lumbago (Primary Dx); Panic disorder without agoraphobia Social History Tobacco Use Types Packs/Day Years Used Date Smoking Tobacco: Never Assessed Comments Unknown Sex and Gender Information Value Date Recorded Sex Assigned at Not on file Legal Sex Female 5:19 AM RUNNING RIGGER Gender Identity Not on file Sexual Orientation Not on file documented as of this encounter Plan of Treatment Not on file documented as of this encounter Visit Diagnoses Diagnosis Lumbago- Primary Panic disorder without agoraphobia documented in this encounter Care Teams Rate Setter Relationship Specialty Start Date End Date Woo Clark Jr., MD [address] [address] PCP - General 12/30/09 documented as of this encounter
--- OUTSIDE RECORDS SUMMARY | 2025-10-16 20:51 | XMS_ITS | Encounter Summary ---
Author Organization [employer] [facility] Address [address] [place] [address] Care Team Providers Care Dividing Machine Operator Helper Name Role Phone Amber Ward MD, Woo Sanford Primary Care Provider Encounter Details Date Type Department Care Team (Latest Contact Info) Description 04/05/2002 Outpatient Historical [facility] OSTEOARTHROS NOS-UNSPEC (Primary Dx); LUMBAGO Social History Tobacco Use Types Packs/Day Years Used Date Smoking Tobacco: Never Assessed Comments Unknown Sex and Gender Information Value Date Recorded Sex Assigned at Not on file Legal Sex Female 5:19 AM TWILL CUTTER Gender Identity Not on file Sexual Orientation Not on file documented as of this encounter Plan of Treatment Not on file documented as of this encounter Visit Diagnoses Diagnosis Osteoarthrosis, unspecified whether generalized or localized, unspecified site- Primary Lumbago documented in this encounter Care Teams Dividing Machine Operator Helper Relationship Specialty Start Date End Date Woo Clark Jr., MD [address] [address] PCP - General 12/30/09 documented as of this encounter
--- OUTSIDE RECORDS SUMMARY | 2025-10-16 20:51 | XMS_ITS | Clinical Summary ---
Author Organization [facility] Address [address] [facility] Attn: [place] [address] Care Team Providers Care Sheep Or Calf Grader Name Role Phone Amber Ward MD, Woo Sanford Primary Care Provider Allergies No known active allergies Medications lidocaine (LIDODERM) 5 % Adhesive Patch, Medicated Apply 1 Patch to affected area every 24 hours. 30 Patch 09/25/2023 Active Social History Tobacco Use Types Packs/Day Years Used Date Smoking Tobacco: Every Day Cigarettes Alcohol Use Standard Drinks/Week Comments No 0 (1 standard drink = 0.6 oz pur e alcohol) Feeling Safe Answer Date Recorded Are you in a relationship wi th someone who hurts you emotionally and/or physically? No 09/25/2023 Comments Unknown Sex and Gender Information Value Date Recorded Sex Assigned at Not on file Legal Sex Female 7:57 AM ATTENDANT ARCADE Gender Identity Not on file Sexual Orientation Not on file Last Filed Vital Signs Vital Sign Reading Time Taken Comments Blood Pressure 117/81 09/25/2023 4:15 PM ATTENDANT ARCADE Pulse 58 09/25/2023 4:15 PM ATTENDANT ARCADE Temperature 36.6 C (97.8 F) 09/25/2023 11:54 AM ATTENDANT ARCADE Respiratory Rate 9 09/25/2023 4:15 PM ATTENDANT ARCADE Oxygen Saturation 100% 09/25/2023 4:15 PM ATTENDANT ARCADE Inhaled Oxygen Concentration - - Weight 64.4 kg (142 lb) 09/25/2023 11:54 AM ATTENDANT ARCADE Height 170.2 cm (5' 7 ) 09/25/2023 11:54 AM ATTENDANT ARCADE Body Mass Index 22.24 09/25/2023 11:54 AM ATTENDANT ARCADE Plan of Treatment Health Maintenance Due Date [...] 2) 2021 INFLUENZA VACCINE (#1) [address] [place] [id number] MEDICAID [place] [employer] [facility] [id number] Care Teams Sheep Or Calf Grader Relationship Specialty Start Date End Date Amber Ward, Woo Sanford MD [address] [phone] PCP - General 12/30/09
--- OUTSIDE RECORDS SUMMARY | 2025-10-16 20:51 | XMS_ITS | Encounter Summary ---
Author Organization [employer] [facility] Address [address] [place] [address] Care Team Providers Care Transport Engineer Name Role Phone Amber Ward MD, Woo Sanford Primary Care Provider Encounter Details Date Type Department Care Team (Latest Contact Info) Description 07/06/2002 Outpatient Historical [facility] General symptoms NEC (Primary Dx); ANXIETY STATE NOS Social History Tobacco Use Types Packs/Day Years Used Date Smoking Tobacco: Never Assessed Comments Unknown Sex and Gender Information Value Date Recorded Sex Assigned at Not on file Legal Sex Female 5:19 AM GRANULATING MACHINE OPERATOR Gender Identity Not on file Sexual Orientation Not on file documented as of this encounter Plan of Treatment Not on file documented as of this encounter Visit Diagnoses Diagnosis General symptoms NEC- Primary Other general symptoms Anxiety state, unspecified documented in this encounter Care Teams Transport Engineer Relationship Specialty Start Date End Date Woo Clark Jr., MD [address] [address] PCP - General 12/30/09 documented as of this encounter
--- OUTSIDE RECORDS SUMMARY | 2025-10-16 20:51 | XMS_ITS | Encounter Summary ---
Author Organization [employer] [facility] Address [address] [place] [address] Care Team Providers Care Case Resource Manager Name Role Phone Amber Ward MD, Woo Sanford Primary Care Provider Encounter Details Date Type Department Care Team (Latest Contact Info) Description 11/05/2002 Outpatient Historical [facility] LUMBAGO (Primary Dx); General symptoms NEC; B-COMPLEX DEFIC NEC; UNS ASTHMA WOSTATUS ASTHMATICUS Social History Tobacco Use Types Packs/Day Years Used Date Smoking Tobacco: Never Assessed Comments Unknown Sex and Gender Information Value Date Recorded Sex Assigned at Not on file Legal Sex Female 5:19 AM LAMINATING MACHINE TENDER Gender Identity Not on file Sexual Orientation Not on file documented as of this encounter Plan of Treatment Not on file documented as of this encounter Visit Diagnoses Diagnosis Lumbago- Primary General symptoms NEC Other general symptoms Other B-complex deficiencies Unspecified asthma(493.90) Unspecified asthma documented in this encounter Care Teams Case Resource Manager Relationship Specialty Start Date End Date Woo Clark Jr., MD [address] [address] PCP - General 12/30/09 documented as of this encounter
--- OUTSIDE RECORDS SUMMARY | 2025-10-16 20:51 | XMS_ITS | Encounter Summary ---
Author Organization [employer] [facility] Address [address] [place] [address] Care Team Providers Care Key Punch Operator Name Role Phone Amber Ward MD, Woo Snaford Primary Care Provider Encounter Details Date Type Department Care Team (Latest Contact Info) Description 11/06/2001 Outpatient Historical [facility] SPRAIN OF ANKLE NOS (Primary Dx); POSTMENOPAUSAL HORMONAL REPLACMT Social History Tobacco Use Types Packs/Day Years Used Date Smoking Tobacco: Never Assessed Comments Unknown Sex and Gender Information Value Date Recorded Sex Assigned at Not on file Legal Sex Female 5:19 AM FRONT CLERK Gender Identity Not on file Sexual Orientation Not on file documented as of this encounter Plan of Treatment Not on file documented as of this encounter Visit Diagnoses Diagnosis Sprain of ankle, unspecified site- Primary Need for prophylactic hormone replacement therapy (postmenopausal) documented in this encounter Care Teams Key Punch Operator Relationship Specialty Start Date End Date Woo Clark Jr., MD [address] [address] PCP - General 12/30/09 documented as of this encounter
--- OUTSIDE RECORDS SUMMARY | 2025-10-16 20:51 | XMS_ITS | Encounter Summary ---
Author Organization [employer] [facility] Address [address] [place] [address] Care Team Providers Care Health Science Specialist Name Role Phone Amber Ward MD, Woo Sanford Primary Care Provider Encounter Details Date Type Department Care Team (Latest Contact Info) Description 01/19/1999 Outpatient Historical [facility] Anxiety state, unspecified (Primary Dx) Social History Tobacco Use Types Packs/Day Years Used Date Smoking Tobacco: Never Assessed Comments Unknown Sex and Gender Information Value Date Recorded Sex Assigned at Not on file Legal Sex Female 5:19 AM SPANNER OPERATOR Gender Identity Not on file Sexual Orientation Not on file documented as of this encounter Plan of Treatment Not on file documented as of this encounter Visit Diagnoses Diagnosis Anxiety state, unspecified- Primary documented in this encounter Care Teams Health Science Specialist Relationship Specialty Start Date End Date oWo Clakr Jr., MD [address] [address] PCP - General 12/30/09 documented as of this encounter
--- OUTSIDE RECORDS SUMMARY | 2025-10-16 20:51 | XMS_ITS | Encounter Summary ---
Author Organization [employer] [facility] Address [address] [place] [address] Care Team Providers Care Consultant Rn Name Role Phone Amber Ward MD, Woo Sanford Primary Care Provider Encounter Details Date Type Department Care Team (Latest Contact Info) Description 02/26/2002 Outpatient Historical [facility] ENURESIS NOS (Primary Dx); TOBACCO USE DISORDER Social History Tobacco Use Types Packs/Day Years Used Date Smoking Tobacco: Never Assessed Comments Unknown Sex and Gender Information Value Date Recorded Sex Assigned at Not on file Legal Sex Female 5:19 AM SENIOR WEB DESIGNER Gender Identity Not on file Sexual Orientation Not on file documented as of this encounter Plan of Treatment Not on file documented as of this encounter Visit Diagnoses Diagnosis Unspecified urinary incontinence- Primary Tobacco use disorder documented in this encounter Care Teams Consultant Rn Relationship Specialty Start Date End Date Woo Clark Jr., MD [address] [address] PCP - General 12/30/09 documented as of this encounter
--- OUTSIDE RECORDS SUMMARY | 2025-10-16 20:51 | XMS_ITS | Encounter Summary ---
Author Organization [employer] [facility] Address [address] [place] [address] Care Team Providers Care Filling Station Equipment Mechanic Name Role Phone Amber Ward MD, Woo Sanford Primary Care Provider Encounter Details Date Type Department Care Team (Latest Contact Info) Description 10/04/2002 Outpatient Historical [facility] LUMBAGO (Primary Dx); General symptoms NEC; OTHER MALAISE AND FATIGUE; AFTERCARE SERVICE TECH/WELDER USE MEDICATN Social History Tobacco Use Types Packs/Day Years Used Date Smoking Tobacco: Never Assessed Comments Unknown Sex and Gender Information Value Date Recorded Sex Assigned at Not on file Legal Sex Female 5:19 AM RATTLING MACHINE TENDER Gender Identity Not on file Sexual Orientation Not on file documented as of this encounter Plan of Treatment Not on file documented as of this encounter Visit Diagnoses Diagnosis Lumbago- Primary General symptoms NEC Other general symptoms Other malaise and fatigue Encounter for long-term (current) use of other medications documented in this encounter Care Teams Filling Station Equipment Mechanic Relationship Specialty Start Date End Date Woo Clark Jr., MD [address] [address] PCP - General 12/30/09 documented as of this encounter
--- OUTSIDE RECORDS SUMMARY | 2025-10-16 20:51 | XMS_ITS | Encounter Summary ---
Author Organization [employer] [facility] Address [address] [place] [address] Care Team Providers Care Pan Shover Name Role Phone Amber Ward MD, Woo Sanford Primary Care Provider Encounter Details Date Type Department Care Team (Latest Contact Info) Description 10/31/2001 Outpatient Historical [facility] (Primary Dx); LUMBOSACRAL NEURITIS NOS Social History Tobacco Use Types Packs/Day Years Used Date Smoking Tobacco: Never Assessed Comments Unknown Sex and Gender Information Value Date Recorded Sex Assigned at Not on file Legal Sex Female 5:19 AM BUSINESS ANALYST SALES OPERATIONS Gender Identity Not on file Sexual Orientation Not on file documented as of this encounter Plan of Treatment Not on file documented as of this encounter Visit Diagnoses Diagnosis Sciatica- Primary Thoracic or lumbosacral neuritis or radiculitis, unspecified documented in this encounter Care Teams Pan Shover Relationship Specialty Start Date End Date Woo Clark Jr., MD [address] [phone] PCP - General 12/30/09 documented as of this encounter
[2025-10-16 21:35] LABS: Hematocrit 38.4 % (36-47); Hemoglobin 12.90 g/dL (11.27-16.99); Mean Corpuscular HGB Conc 33.6 g/dL (30-55); Mean Corpuscular Hemoglobin 32.0 pg (27-33); Mean Corpuscular Volume 95.3 fl (85-98); Nucleated Red Blood Cells % 0 %; Platelet Count 300 10^3/cmm (157-399); Red Blood Count 4.03 10^6/uL (3.85-5.65); White Blood Count 10.17 10^3/uL (3.29-11.43)
[2025-10-16 22:07] LABS: Troponin(5th) Baseline < 6 ng/L (0-10)
[2025-10-16 22:09] LABS: Alanine Aminotransferase 12 U/L (0-33); Albumin Level 4.5 g/dL (3.5-5.2); Alkaline Phosphatase 82 U/L (35-105); Anion Gap 18.0 (5-19); Aspartate Amino Transferase 14 U/L (0-32); Blood Urea Nitrogen 10 mg/dL (6-20); Calcium 9.4 mg/dL (8.5-10.5); Carbon Dioxide 21 mmol/L (22-29); Chloride 104 mmol/L (98-107); Globulin 2.5 g/dL (1.3-4.6); Glucose 103 mg/dL (65-115); Osmolality Calculated 287 mOsm/kg (285-295); Potassium 4.0 mmol/L (3.5-5.1); Sodium 139 mmol/L (136-145); Total Protein 7.0 g/dL (6.6-8.7)
[2025-10-16 22:26] VITALS: BP 134/74
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
[2025-10-16 23:00] VITALS: BP 111/68
--- NOTE | 2025-10-16 23:17 | ECG_ITS ---
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 Measurements Intervals [place] Rate: 58 P: 72 TX: 163 QRS: 64 QRSD: 97 T: 63 QT: 420 QTc: 415 Interpretive Statements SINUS BRADYCARDIA Compared to ECG 10/16/2025 20:52:09 Sinus rhythm no longer present Electronically Signed On 10-17-2025 17:56:39 [employer] by Brandon Graff M.D. [email or web address]
[2025-10-16 23:30] VITALS: BP 120/64
[2025-10-16 23:47] VITALS: BP 120/64; PULSE 64; O2SAT 97
[2025-10-17 00:02] LABS: Glucose Urine UA Negative (Normal); Nitrate Urine Negative (Negative); Specific Gravity, Urine 1.007 (1.005-1.030)
[2025-10-17 00:06] LABS: Add Urine Microscopic? YES
== END 2025-10-16 23:48 | disposition home or self-care (01) ==
PROVIDERS: Family Medicine; Emergency Provider Physician Assistant; PCP Nurse Practitioner
DX: R07.9 Chest pain, unspecified (principal); T44.7X5A Adverse effect of beta-adrenoreceptor antagonists, initial encounter; X58.XXXA Exposure to other specified factors, initial encounter; Z72.0 Tobacco use
CPT/HCPCS: 36415; 71045; 80053; 81001; 84484; 85025; 93005; 99285